=== PATIENT | male | born 1945 | race Caucasian/White ===

== ENCOUNTER 2016-08-14 16:00 | Emergency (ER) | payer OTHER ==
--- NOTE | 2016-08-14 17:35 | DIAGNOSTIC IMAGING REPORT ---
PROCEDURE: CT HEAD WITHOUT CONTRAST INDICATION: TRAUMA/INJURY TECHNIQUE: Axial CT images were acquired through the head. Coronal and sagittal reformations were created. COMPARISON: None. FINDINGS: No intracranial hemorrhage or extraaxial fluid collections. Ventricles are normal in size, shape and position. There is no mass, mass effect or midline shift. The hill-white matter differentiation is normal. There is no edema. The calvarium is intact. The paranasal sinuses and mastoid air cells are normally aerated. The extracranial soft tissues and orbits are normal. IMPRESSION: 1. No CT evidence of acute intracranial process. All CT scans at this facility use dose modulation, iterative reconstruction, and/or weight-based dosing when appropriate to reduce radiation dose to as low as reasonably achievable.
--- NOTE | 2016-08-14 17:58 | ED NURSING NOTES ---
Clinical Report - Nurses [facility] [address] [place] [address] 08/14/2016 16:02 [id number] Triage time 16:10. Acuity: LEVEL 4. Chief Complaint: FALL and ABRASION. 16:27 08/14/16. Alert. No acute distress. SEPSIS SCREEN: Sepsis Screen. Negative (no infection suspected/documented). VINNIE COMA SCORE: [place] Coma Scale: 15- eyes open spontaneously (4); best verbal response- oriented x 4 (5); best motor response- obeys commands (6). --16:27 Orly Roy R.N. 16:17 08/14/16. BP: 146/87. HR: 77. RR: 14. O2 saturation: 96% on room air. Temp: 97.6 F. Pain level now: 0/10. --16:27 Orly Roy R.N. 16:55 08/14/16. --16:56 Orly Roy R.N. Weight: 104.3 kg stated. Height/Length: 71 inches Per Patient. BMI: 32.1. --16:25 Orly Roy R.N. Medications Allopurinol Oral. --16:21 Orly Roy R.N. Citalopram Hydrobromide Oral. --16:21 Orly Roy R.N. Docusate Sodium Oral. --16:21 Orly Roy R.N. Ferrous Sulfate Oral. --16:21 Orly Roy R.N. Loratadine Oral. --16:21 Orly Roy R.N. Metoprolol Tartrate Oral. --16:22 Orly Roy R.N. QUEtiapine Fumarate Oral. --16:22 Orly Roy R.N. Ranitidine HCl Oral. --16:22 Orly Roy R.N. Vitamin D-3 Oral. --16:22 Orly Roy R.N. Levothyroxine Sodium Oral. --16:22 Orly Roy R.N. Allergies None. --16:55 Orly Roy R.N. History Historian: (caregiver from [facility]). Primary physician (Dr Carty). Location of injuries: right thumb and left knee. This occurred just prior to arrival. No loss of consciousness. No headache, neck pain or back pain. Treatment BINDING END STITCHER: None. SOCIAL HX: Never smoker. No alcohol use or drug use. FALL RISK ASSESSMENT: Fall risk assessment completed. No fall risk identified. NUTRITIONAL RISK ASSESSMENT: The nutritional risk assessment revealed no deficiencies. FUNCTIONAL ASSESSMENT: Functional assessment: no impairments noted. LEARNING NEEDS ASSESSMENT: The learning needs assessment revealed no barriers. SKIN INTEGRITY ASSESSMENT: Skin integrity risk assessment completed. No skin integrity risk identified. --16:27 Orly Roy R.N. PAST MEDICAL HX: Tetanus status: up-to-date. Last tetanus: (2 years ago). --16:56 Orly Roy R.N. PROBLEMS: Developmental Delay. --16:24 Orly Roy R.N. Interventions ID band on patient. To treatment room. --16:27 Orly Roy R.N. PHYSICAL ASSESSMENT 16:29 08/14/16. GENERAL / NEURO / PSYCH: Alert. Oriented X 4. Appears in no acute distress. RESPIRATORY: Respirations not labored. CVS: Pulses within normal limits. Capillary refill less than 2 seconds. GI / : Abdomen soft and nontender. EXTREMITIES: Extremities exhibit normal ROM. Right thumb: superficial 0.5 cm laceration with controlled bleeding. Left knee: small and superficial abrasion. No limitation in ROM. SKIN: Skin intact. Skin is warm and dry. --16:29 Orly Roy R.N. 16:29 08/14/16. To room via wheelchair. --16:29 Orly Roy R.N. NURSING PROGRESS NOTES 16:30 08/14/16. Patient gowned. Two patient identifiers checked. Call light placed in reach. Side rails up x 2. Bed placed in lowest position. Brakes of bed on. Patient ready for evaluation- chart flagged and notification provided. Patient informed about reason for wait and about plan of care. --16:30 Orly Roy R.N. 16:53 08/14/2016 Tylenol (Acetaminophen) PO Tablets 650 mg given. Allergies verified and confirmed 5 rights. --16:53 Orly Roy R.N. 17:15 08/14/16. ( pt with radiology.). --17:15 Orly Roy R.N. DISPOSITION / DISCHARGE late entry - 18:10. Discharge instructions provided and reviewed with the caregiver and patient. Reviewed medication(s). Treatments reviewed. Written instructions provided in Urdu. Caregiver verbalized understanding. The patient was discharged by the physician. He was discharged home and accompanied by caregiver. He left the Emergency Department ambulatory and via private vehicle. Driving (caregiver). --18:58 Orly Roy R.N. 18:05 08/14/16. BP: 144/77. HR: 54. RR: 16. O2 saturation: 94%. Temp: deferred. Pain level now: 0/10. --18:58 Orly Roy R.N. Departure time: 18:10. --18:58 Orly Roy R.N. Locked/Released at 08/14/2016 18:59 by Orly Roy R.N.
--- NOTE | 2016-08-14 17:58 | ED NURSING NOTES ---
Clinical Report - Nurses [facility] [address] [place] [address] 08/14/2016 16:02 [id number] TRI[facility] Triage time 16:10. Acuity: LEVEL 4. Chief Complaint: FALL and ABRASION. 16:27 08/14/16. Alert. No acute distress. SEPSIS SCREEN: Sepsis Screen. Negative (no infection suspected/documented). VINNIE COMA SCORE: [place] Coma Scale: 15- eyes open spontaneously (4); best verbal response- oriented x 4 (5); best motor response- obeys commands (6). --16:27 Orly Roy R.N. 16:17 08/14/16. BP: 146/87. HR: 77. RR: 14. O2 saturation: 96% on room air. Temp: 97.6 F. Pain level now: 0/10. --16:27 Orly Roy R.N. 16:55 08/14/16. --16:56 Orly Roy R.N. Weight: 104.3 kg stated. Height/Length: 71 inches Per Patient. BMI: 32.1. --16:25 Orly Roy R.N. Medications Allopurinol Oral. --16:21 Orly Roy R.N. Citalopram Hydrobromide Oral. --16:21 Orly Roy R.N. Docusate Sodium Oral. --16:21 Orly Roy R.N. Ferrous Sulfate Oral. --16:21 Orly Roy R.N. Loratadine Oral. --16:21 Orly Roy R.N. Metoprolol Tartrate Oral. --16:22 Orly Roy R.N. QUEtiapine Fumarate Oral. --16:22 Orly Roy R.N. Ranitidine HCl Oral. --16:22 Orly Roy R.N. Vitamin D-3 Oral. --16:22 Orly Roy R.N. Levothyroxine Sodium Oral. --16:22 Orly Roy R.N. Allergies None. --16:55 Orly Roy R.N. History Historian: (caregiver from [facility]). Primary physician (Dr Carty). Location of injuries: right thumb and left knee. This occurred just prior to arrival. No loss of consciousness. No headache, neck pain or back pain. Treatment FAMILY LIFE EDUCATOR: None. SOCIAL HX: Never smoker. No alcohol use or drug use. FALL RISK ASSESSMENT: Fall risk assessment completed. No fall risk identified. NUTRITIONAL RISK ASSESSMENT: The nutritional risk assessment revealed no deficiencies. FUNCTIONAL ASSESSMENT: Functional assessment: no impairments noted. LEARNING NEEDS ASSESSMENT: The learning needs assessment revealed no barriers. SKIN INTEGRITY ASSESSMENT: Skin integrity risk assessment completed. No skin integrity risk identified. --16:27 Orly Roy R.N. PAST MEDICAL HX: Tetanus status: up-to-date. Last tetanus: (2 years ago). --16:56 Orly Roy R.N. PROBLEMS: Developmental Delay. --16:24 Orly Roy R.N. Interventions ID band on patient. To treatment room. --16:27 Orly Roy R.N. PHYSICAL ASSESSMENT 16:29 08/14/16. GENERAL / NEURO / PSYCH: Alert. Oriented X 4. Appears in no acute distress. RESPIRATORY: Respirations not labored. CVS: Pulses within normal limits. Capillary refill less than 2 seconds. GI / : Abdomen soft and nontender. EXTREMITIES: Extremities exhibit normal ROM. Right thumb: superficial 0.5 cm laceration with controlled bleeding. Left knee: small and superficial abrasion. No limitation in ROM. SKIN: Skin intact. Skin is warm and dry. --16:29 Orly Roy R.N. 16:29 08/14/16. To room via wheelchair. --16:29 Orly Roy R.N. NURSING PROGRESS NOTES 16:30 08/14/16. Patient gowned. Two patient identifiers checked. Call light placed in reach. Side rails up x 2. Bed placed in lowest position. Brakes of bed on. Patient ready for evaluation- chart flagged and notification provided. Patient informed about reason for wait and about plan of care. --16:30 Orly Roy R.N. 16:53 08/14/2016 Tylenol (Acetaminophen) PO Tablets 650 mg given. Allergies verified and confirmed 5 rights. --16:53 Orly Roy R.N. 17:15 08/14/16. ( pt with radiology.). --17:15 Orly Roy R.N. DISPOSITION / DISCHARGE late entry - 18:10. Discharge instructions provided and reviewed with the caregiver and patient. Reviewed medication(s). Treatments reviewed. Written instructions provided in Nepali. Caregiver verbalized understanding. The patient was discharged by the physician. He was discharged home and accompanied by caregiver. He left the Emergency Department ambulatory and via private vehicle. Driving (caregiver). --18:58 Orly Roy R.N. 18:05 08/14/16. BP: 144/77. HR: 54. RR: 16. O2 saturation: 94%. Temp: deferred. Pain level now: 0/10. --18:58 Orly Roy R.N. Departure time: 18:10. --18:58 Orly Roy R.N. Locked/Released at 08/14/2016 18:59 by Orly Roy R.N.
--- NOTE | 2016-08-14 17:58 | ED ORDER SUMMARY ---
..... Patient: RIO CASTILLO OrderSheet [facility] VisitID: [id number] [address] [place] [address] 71y, M Registration Date/Time: 08/14/2016 ORDER SHEET Weight: 104.3 kg (stated) Allergies: None GENERAL ORDERS: Knee 4V Bilat Urgent (16:47 08/14/2016 Kellie Tariq) (Ack 16:51 Radha) (17:34 Radha) CT Head wo Cont Urgent (16:47 08/14/2016 Kellie Tariq) (Ack 16:51 Radha) (17:19 Alfonsoaviva) MEDICATION ORDERS: Tylenol PO 650 mg (NOW) (16:47 08/14/2016 Kellie Tariq) (Ack 16:49 RMarsden R.N.) (16:53 RMarsden R.N.) IV FLUIDS: ORDER SHEET NOTES: [Electronically signed by Orly Roy R.N. (18:59 08/14/2016)] [Electronically signed by Emmanuel Barbosa Dr. (17:39 08/18/2016)] [Electronically locked/signed by Orly Roy R.N. (18:59 08/14/2016)]
--- NOTE | 2016-08-14 17:58 | ED ORDER SUMMARY ---
..... Patient: RIO CASTILLO OrderSheet [facility] VisitID: [id number] [address] [place] [address] 71y, M Registration Date/Time: 08/14/2016 ORDER SHEET Weight: 104.3 kg (stated) Allergies: None GENERAL ORDERS: Knee 4V Bilat Urgent (16:47 08/14/2016 Kellie Tariq) (Ack 16:51 Radha) (17:34 Radha) CT Head wo Cont Urgent (16:47 08/14/2016 Kellie Tariq) (Ack 16:51 Radha) (17:19 Alfonsoaviva) MEDICATION ORDERS: Tylenol PO 650 mg (NOW) (16:47 08/14/2016 Kellie Tariq) (Ack 16:49 RMarsden R.N.) (16:53 RMarsden R.N.) IV FLUIDS: ORDER SHEET NOTES: [Electronically signed by Orly Roy R.N. (18:59 08/14/2016)] [Electronically signed by Emmanuel Barbosa Dr. (17:39 08/18/2016)] [Electronically locked/signed by Orly Roy R.N. (18:59 08/14/2016)]
--- NOTE | 2016-08-14 17:58 | ED CLINICAL REPORT ---
Clinical Report - Physicians/Mid Levels [facility] [address] [place] [address] 08/14/2016 16:02 Patient: RIO CASTILLO Time Seen: 1635. Arrived- By private vehicle. Historian- patient. HISTORY OF PRESENT ILLNESS Chief Complaint: FALL. Location of injuries- head, face, right knee and left knee. The injury occurred just prior to arrival. Fell. The patient complains of mild pain. The patient sustained a blow to the head. No neck pain, loss of consciousness or seizure. Not dazed. (reports no preceding symptoms. describes mechanical fall. no other injuries or pain.). REVIEW OF SYSTEMS No numbness, loss of vision, chest pain, difficulty breathing or weakness. No nausea, abdominal pain or laceration. All systems otherwise negative, except as recorded above. PAST HISTORY See nurses notes. Tetanus immunization status is up-to-date. SOCIAL HISTORY Never smoker. No alcohol use or drug use. Is a local resident. ADDITIONAL NOTES The nursing notes have been reviewed. PHYSICAL EXAM Vital Signs: 08/14/2016 16:17 BP: 146/87. HR: 77. RR: 14. O2 saturation: 96%. Temp: 97.6 F. Pain level now: 0/10. Oxygen saturation normal. Appearance: Alert. Oriented X3. No acute distress. Head: Sweeney's sign. Raccoon eyes. Head non-tender. No swelling of head. (midface stable and non-tender.). Eyes: Pupils equal, round and reactive to light. Pupillary exam: Right pupil round and reactive to light directly and consensually and with accommodation. Left pupil: round and reactive to light directly and consensually and with accommodation. EOM intact. No ocular injury. ENT: No dental injury. No hemotympanum. Pharynx normal. No malocclusion. Neck: No decreased ROM or muscle spasm in the neck. No pain with movement of head/neck. Painless ROM. Non-tender. No vertebral tenderness. CVS: Heart sounds normal. Pulses normal. Respiratory: Breath sounds normal. Chest nontender. Abdomen: No visible injury. Soft and nontender. Bowel sounds normal. No mass. Back: No tenderness. ROM normal. Skin: Skin intact. Skin warm and dry. Normal skin color. Normal skin turgor. Extremities: Normal inspection. Pelvis stable. Extremities atraumatic. Neuro: Mabel Coma Scale: 15- eyes open spontaneously (4); best verbal response- oriented x 3 (5); best motor response- obeys commands (6). Oriented X 3. LABS, X-RAYS, AND EKG CT Head: . (PROCEDURE: CT HEAD WITHOUT CONTRAST INDICATION: TRAUMA/INJURY TECHNIQUE: Axial CT images were acquired through the head. Coronal and sagittal reformations were created. COMPARISON: None. FINDINGS: No intracranial hemorrhage or extraaxial fluid collections. Ventricles are normal in size, shape and position. There is no mass, mass effect or midline shift. The hill-white matter differentiation is normal. There is no edema. The calvarium is intact. The paranasal sinuses and mastoid air cells are normally aerated. The extracranial soft tissues and orbits are normal. IMPRESSION: 1. No CT evidence of acute intracranial process.). Head CT performed without contrast. The study was independently viewed by me and interpreted by the radiologist. The study was discussed with the radiologist (via phone). Note - Special Studies: PROCEDURE: XR KNEE 4 VIEWS BILATERAL INDICATION: TRAUMA/INJURY TECHNIQUE: Four views of each knee. COMPARISON: None. FINDINGS: RIGHT KNEE: Osseous structures and joint spaces are normal. LEFT KNEE: Osseous structures and joint spaces are normal. IMPRESSION: 1. Normal bilateral knees. Reviewed and interpreted by me contemporaneously. PROGRESS AND PROCEDURES C-Spine Status: Cervical spine cleared by history and physical exam. Patient alert and oriented times three and does not appear intoxicated. No distracting injury present. No complaint of neck pain. There is no neurological deficit or point tenderness on examination. Full cervical spine range of motion without pain. Course of Care: he patient is a pleasant 71-year-old male with no pertinent past medical history who sustained a ground-level fall was mechanical in nature just prior to arrival. Patient was evaluated for any signs of facial injury. No evidence of fracture or tenderness on examination. Do not feel patient requires CT scan of the maxillofacial bones at this time. Patient does require CT scan of the head as the patient is over 65 years old. Patient is reporting bilateral knee pain. Patient is noted to have an antalgic gait but is able to ambulate rather well. No Shine's is required with this. C-spine was cleared clinically. No distracting injury noted. Patient is agreeable to the treatment and plan. Pain medication has been ordered. Workup does not show any acute osseous abnormalities or any intracranial abnormalities. I discussion with patient and the patient's caregiver who is at bedside. All questions answered. The patient's andcaregiver expressed understanding of these instructions and was agreeable to them. Prior to discharge from the emergency department, repeat examination is to need to be reassuring. do not feel patient requires further emergency department workup/evaluation or admission to the hospital at this time. Patient continues to be neurovascularly intact and withbaseline normal behavior. Disposition: Discharged. Condition: good. CLINICAL IMPRESSION 08/14/2016 16:17 BP: 146/87. HR: 77. RR: 14. O2 saturation: 96%. Temp: 97.6 F. Pain level now: 0/10. Hypertensive. Oxygen saturation normal. Single superficial abrasion to the left knee. Multiple contusions to the right knee and left knee. Minor closed head injury. No loss of consciousness. (acute). INSTRUCTIONS Warnings: GENERAL WARNINGS: Return or contact your physician immediately if your condition worsens or changes unexpectedly, if not improving as expected, or if other problems arise. SPECIFICALLY, return if you develop weakness, numbness, tingling, pain or incontinence. Your Current Medications: CONTINUE TAKING THE FOLLOWING MEDICATIONS: Allopurinol Oral. Citalopram Hydrobromide Oral. Docusate Sodium Oral. Ferrous Sulfate Oral. Levothyroxine Sodium Oral. Loratadine Oral. Metoprolol Tartrate Oral. QUEtiapine Fumarate Oral. Ranitidine HCl Oral. Vitamin D-3 Oral. OTC Medications: Acetaminophen (available over the counter): take according to label instructions. Motrin (available over the counter): take according to label instructions. Follow-up: Return to the emergency department as needed. Follow up with your doctor in three days. Reason for referral: recheck today's concerns. Summary of care provided to patient via paper. Screening today revealed the patient's blood pressure to be in the hypertensive range. The patient should follow up with a primary care provider for blood pressure management. Understanding of the discharge instructions verbalized by patient. (Electronically signed by Emmanuel Barbosa Dr. 08/18/2016 17:39)
--- NOTE | 2016-08-14 18:05 | DIAGNOSTIC IMAGING REPORT ---
PROCEDURE: XR KNEE 4 VIEWS BILATERAL INDICATION: TRAUMA/INJURY TECHNIQUE: Four views of each knee. COMPARISON: None. FINDINGS: RIGHT KNEE: Osseous structures and joint spaces are normal. LEFT KNEE: Osseous structures and joint spaces are normal. IMPRESSION: 1. Normal bilateral knees.
--- NOTE | 2016-08-18 17:39 | ED MED RECONCILIATION SUMMARY ---
Patient: RIO CASTILLO Medication Reconciliation Report [facility] VisitID: [id number] [address] [place] [address] 71y, M Registration Date/Time: 08/14/2016 Weight: 104.3 kg Height/Length: 71 in. BMI: 32.1 ALLERGIES: None The patient's Home Medications are listed below: CONTINUE TAKING THE FOLLOWING MEDICATIONS: Allopurinol Oral Citalopram Hydrobromide Oral Docusate Sodium Oral Ferrous Sulfate Oral Levothyroxine Sodium Oral Loratadine Oral Metoprolol Tartrate Oral QUEtiapine Fumarate Oral Ranitidine HCl Oral Vitamin D-3 Oral The source(s) of the original Home Medication information: Not obtained. The following Medications were given to the patient in the Emergency Department: Tylenol [PO] PO 650 mg, administered: 08/14/2016 4:53:00 PM The following Medications were prescribed to the patient: Acetaminophen (available over the counter): take according to label instructions. -- Emmanuel Barbosa Dr. Motrin (available over the counter): take according to label instructions. -- Emmanuel Barbosa Dr.
--- NOTE | 2016-08-18 17:39 | ED MAR SUMMARY ---
..... Medication Administration Record [facility] [address] [place] [address] Patient: RIO CASTILLO Visit ID: [id number] 71y, M Weight: 104.3 kg Height/Length: 71 in BMI: 32.1 ALLERGIES: None Given 16:53 08/14/2016 Orly Roy R.N. Medication Administered: TYLENOL [PO] (ACETAMINOPHEN), Dose: 650 mg Tablets PO. Medication Ordered: Tylenol PO 650 mg (NOW).
--- NOTE | 2016-08-18 17:39 | ED MAR SUMMARY ---
..... Medication Administration Record [facility] [address] [place] [address] Patient: RIO CASTILLO Visit ID: [id number] 71y, M Weight: 104.3 kg Height/Length: 71 in BMI: 32.1 ALLERGIES: None Given 16:53 08/14/2016 Orly Roy R.N. Medication Administered: TYLENOL [PO] (ACETAMINOPHEN), Dose: 650 mg Tablets PO. Medication Ordered: Tylenol PO 650 mg (NOW).
--- NOTE | 2016-08-18 17:39 | ED DISCHARGE INSTRUCTIONS ---
Patient: RIO CASTILLO General Instructions [facility] VisitID: [id number] [place] [address] 71y, M Registration Date/Time: 08/14/2016 08/14/2016 16:17 BP: 146/87. HR: 77. RR: 14. O2 saturation: 96%. Temp: 97.6 F. Pain level now: 0/10. Hypertensive. Oxygen saturation normal. Single superficial abrasion to the left knee. Multiple contusions to the right knee and left knee. Minor closed head injury. No loss of consciousness. (acute). INSTRUCTIONS Warnings: GENERAL WARNINGS: Return or contact your physician immediately if your condition worsens or changes unexpectedly, if not improving as expected, or if other problems arise. SPECIFICALLY, return if you develop weakness, numbness, tingling, pain or incontinence. Your Current Medications: CONTINUE TAKING THE FOLLOWING MEDICATIONS: Allopurinol Oral. Citalopram Hydrobromide Oral. Docusate Sodium Oral. Ferrous Sulfate Oral. Levothyroxine Sodium Oral. Loratadine Oral. Metoprolol Tartrate Oral. QUEtiapine Fumarate Oral. Ranitidine HCl Oral. Vitamin D-3 Oral. OTC Medications: Acetaminophen (available over the counter): take according to label instructions. Motrin (available over the counter): take according to label instructions. Follow-up: Return to the emergency department as needed. Follow up with your doctor in three days. Reason for referral: recheck today's concerns. Summary of care provided to patient via paper. Screening today revealed the patient's blood pressure to be in the hypertensive range. The patient should follow up with a primary care provider for blood pressure management. Understanding of the discharge instructions verbalized by patient. ADDITIONAL INFORMATION Abrasions Abrasions are skin scrapes. Their treatment depends on how large and deep the abrasion is. Home Care: If you were given a bandage, change it once a day. If your bandage sticks to the wound, soak it in warm water until it loosens. Wash the area with soap and water to remove all the cream/ointment. You may do this in a sink, under a tub faucet or shower. Rinse off the soap and pat dry with a clean towel. Reapply cream/ointment according to your doctor's instructions. This will prevent infection and help prevent the bandage from sticking. Cover the wound with a fresh non-stick bandage (Telfa). Repeat steps 1 to 4 daily, or as directed by your doctor. If the bandage becomes wet or dirty, change it as soon as possible. You may use acetaminophen (Tylenol) or ibuprofen (Motrin, Advil) to control pain, unless another pain medicine was prescribed. [ NOTE : If you have chronic liver or kidney disease or ever had a stomach ulcer or GI bleeding, talk with your doctor before using these medicines.] Do not use ibuprofen in children under six months of age. Follow Up with your physician or this facility as directed by our staff. Most skin wounds heal within ten days. However, an infection may occur despite proper treatment. Therefore, look for the early signs of infection listed below. Get Prompt Medical Attention if any of the following occur: Increasing pain in the wound Increasing redness or swelling Pus coming from the wound Fever of 100.4F (38C) or higher, or as directed by your healthcare provider Contusion:Lower Extremity You have a CONTUSION of your LOWER extremity (leg, knee, ankle, foot, or toes). This causes local pain, swelling and sometimes bruising. There are no broken bones. This injury may take from a few days to a few weeks to heal. Home Care: 1) Keep your leg elevated to reduce pain and swelling. When sleeping, place a pillow under the injured leg. When sitting, support the injured leg so it is level with your waist. This is very important during the first 48 hours. 2) If CRUTCHES have been advised, do not bear full weight on the injured leg until you can do so without pain. You may return to sports when you are able to hop and run on the injured leg without pain. 3) Apply an ice pack (ice cubes in a plastic bag, wrapped in a towel) over the injured area for 20 minutes every 1-2 hours the first day for pain relief. Continue this 3-4 times a day until the pain and swelling goes away. 4) You may use acetaminophen (Tylenol) or ibuprofen (Motrin, Advil) to control pain, unless another pain medicine was prescribed. [ NOTE : If you have chronic liver or kidney disease or ever had a stomach ulcer or GI bleeding, talk with your doctor before using these medicines.] Follow Up with your doctor or this facility if you are not starting to improve within the next THREE days. [NOTE: If X-rays were taken, they will be reviewed by a radiologist. You will be notified of any new findings that may affect your care.] Get Prompt Medical Attention if any of the following occur: -- Pain or swelling increases -- Toes become cold, blue, numb or tingly -- Redness, warmth or drainage from the skin Head Injury, No Wake-Up (Adult) You have had a head injury. It does not appear serious at this time. Symptoms of a more serious problem (concussion, bruising, or bleeding in the brain) may appear later. Therefore, watch for the WARNING SIGNS listed below. Home Care: Your healthcare provider will tell you whether its okay to drive. If so, you can drive yourself home. For the next day or so, be careful when driving or using heavy machinery until you are sure you have no delayed symptoms. During the next 24 hours someone must stay with you to check for the signs below. It is not necessary to stay awake or be awakened during the night. If you have swelling of the face or scalp, apply an ice pack (ice cubes in a plastic bag, wrapped in a towel) for 20 minutes. Do this every 1-2 hours until the swelling starts to go down. Do not use aspirin or ibuprofen (Motrin, Advil) after a head injury.You may use acetaminophen (Tylenol)to control pain, unless another pain medicine was prescribed. [NOTE: If you have chronic liver or kidney disease or ever had a stomach ulcer or GI bleeding, talk with your doctor before using these medicines.] For the next 24 hours: Do not take alcohol, sedatives or medicines that make you sleepy. Avoid strenuous activities. No lifting or straining. If you have had any symptoms of a concussion today (nausea, vomiting, dizziness, confusion, headache, memory loss or if you were knocked out), do not return to sports or any activity that could result in another head injury until all symptoms are gone and you have been cleared by your doctor. A second head injury before fully recovering from the first one can lead to serious brain injury. Follow Up with your doctor if symptoms are not improving after 24 hours, or as directed. [NOTE: A radiologist will review any X-rays or CT scans that were taken. We will notify you of any new findings that may affect your care.] Get Prompt Medical Attention if any of the followingWARNING SIGNS occur: Repeated vomiting Severe or worsening headache or dizziness Unusual drowsiness, or unable to awaken as usual Confusion or change in behavior or speech, memory loss, blurred vision Convulsion (seizure) Increasing scalp or face swelling Redness, warmth or pus from the swollen area Fluid drainage or bleeding from the nose or ears You have been given the following additional information: Abrasion Contusion, Lower Extremity HEAD INJURY, No Wake-Up (Adult) (Electronically signed by Emmanuel Barbosa Dr. 08/18/2016 17:39)
--- NOTE | 2016-08-18 17:39 | ED MED RECONCILIATION SUMMARY ---
Patient: RIO CASTILLO Medication Reconciliation Report [facility] VisitID: [id number] [place] [address] 71y, M Registration Date/Time: 08/14/2016 Weight: 104.3 kg Height/Length: 71 in. BMI: 32.1 ALLERGIES: None The patient's Home Medications are listed below: CONTINUE TAKING THE FOLLOWING MEDICATIONS: Allopurinol Oral Citalopram Hydrobromide Oral Docusate Sodium Oral Ferrous Sulfate Oral Levothyroxine Sodium Oral Loratadine Oral Metoprolol Tartrate Oral QUEtiapine Fumarate Oral Ranitidine HCl Oral Vitamin D-3 Oral The source(s) of the original Home Medication information: Not obtained. The following Medications were given to the patient in the Emergency Department: Tylenol [PO] PO 650 mg, administered: 08/14/2016 4:53:00 PM The following Medications were prescribed to the patient: Acetaminophen (available over the counter): take according to label instructions. -- Emmanuel Barbosa Dr. Motrin (available over the counter): take according to label instructions. -- Emmanuel Barbosa Dr.
== END 2016-08-14 18:10 ==
LOC: ED SRH 16:00
DX: S09.90XA Unspecified injury of head, initial encounter (principal); S80.212A Abrasion, left knee, initial encounter; W19.XXXA Unspecified fall, initial encounter; Y99.9 Unspecified external cause status; Y92.9 Unspecified place or not applicable; Y93.9 Activity, unspecified